=== PATIENT | female | born 1985 | race Caucasian/White ===

== ENCOUNTER 2024-06-17 15:04 | Outpatient (AMB) | payer MEDICAID, SELFPAY ==
--- NOTE | 2024-06-17 15:11 | MHC.OFFVIS ---
Vital Signs 06/17/24 15:18 Height 5 ft 2 in Weight 130 lb 1.164 oz BMI 23.8 BP 120/80 Blood Pressure Location Lt brachial Position Sitting Pulse 95 Pulse Source Pulse Oximeter Pulse Oximetry (%) 98 Oxygen Delivery Method Simple Mask Intake Visit Reasons: Lupus/CM Intake Note: Patient presents for Lupus. Allergies No Known Allergies Allergy (Mild, Verified 06/17/24 15:16) NOT APPLICABLE Medication List - Last Reconciled 06/17/24 by Carmita Henriquez MD minoxidil 5% ea topical HPI Comments Details: This is a 39-year-old female who presents for evaluation of a positive ALEXYS. She was referred by Dermatology. This was ordered in the context of alopecia. Patient stated that she has had hair loss for more than 10 years. Did that it started when she started having kids. She states that the hair grows back. She started using minoxidil about 4 years ago after having her last child. She states that it does help. She denies having any bald spots. Patient denies any unexplained fevers, unexplained weight loss, skin rashes, mouth ulcers, blood or froth in urine, joint pain, swelling or stiffness. She denies any history of DVT/PE. She had 5 pregnancies, 5 children, no abortions or miscarriages. She is unaware of any family history of an autoimmune rheumatic disease REPLACED BY [facility] Medical History Melanocytic nevi of scalp and neck Melanocytic nevi of other parts of face Female pattern alopecia Flexural atopic dermatitis Hair loss Family History Mother Thyroid cancer Social History Household Members: Family Housing: House Alcohol intake: never Patient Tobacco Use Status: Never used Tobacco Current occupational status: unemployed Female Reproductive History Menstrual Total pregnancies: 5 Full term: 5 Ab induced: 0 Ab spontaneous: 0 Review of Systems Const Denies fatigue, Denies fever(s) and Denies weight loss ENT Details: Denies oral ulcers Musc Denies arthralgias, Denies joint swelling and Denies stiffness Skin/Breast Reports alopecia and Denies rash Endo Denies fatigue Physical Exam Vital Signs: Last Vital Signs Pulse 95 06/17/24 15:18 BP 120/80 06/17/24 15:18 Pulse Ox 98 06/17/24 15:18 Oxygen Delivery Method Simple Mask 06/17/24 15:18 BMI result Body Mass Index 23.8 Const General: cooperative, healthy appearing and comfortable Nutritional Appearance: average body habitus Orientation/consciousness: patient oriented x3 Limitations: no limitations HEENT Head: Yes normocephalic and Yes atraumatic Mouth: moist mucous membranes Resp Effort & Inspection: normal respiratory effort and able to speak in complete sentences Auscultation: clear to auscultation bilaterally Cardio Rate: regular rate Rhythm: regular rhythm GI Palpation (GI): Tenderness to palpation present (GI) Skin General skin exam: no rashes or lesions noted Neuro General: patient oriented x3 Extrem Other: Minimal osteoarthritic changes of both hands with no active synovitis Normal nailfold capillaroscopy No knee pain with full flexion-extension Normal pain-free range of motion of elbows and shoulders Results Reviewed Results Reviewed: Labs 06/2023 CBC unremarkable CMP unremarkable Ferritin 14(14-283) TSH 3.40 normal ALEXYS 1-320 nucleolar Assessment & Plan Assessment & Plan (1) ALEXYS positive: Code(s): R76.8 - Other specified abnormal immunological findings in serum Category: Medical Plan: This is a 39-year-old female referred by Dermatology for evaluation of a positive ALEXYS in the context of female pattern alopecia. Upon evaluation I do not see any signs suggestive of an underlying autoimmune rheumatic disease. Patient essentially has negative exam and negative review of systems. Positive ALEXYS can be seen in about 20% of the population without underlying autoimmune rheumatic disease Discussed with patient the symptoms and signs that are suggestive of an autoimmune rheumatic disease. Advised patient to return as needed Plan I spent 25 minutes reviewing patient's chart, evaluating patient, counseling patient and documenting in the chart Coding Level of Care Code New Pt Level 3 (54277) Diagnoses ALEXYS positive R76.8
[2024-06-17 15:18] VITALS: BP 120/80; PULSE 95; O2SAT 98; BMI 23.8
== END 2024-06-17 15:55 | disposition home or self-care (01) ==
PROVIDERS: PCP Physician Assistant; Visit Provider Student in an Organized Health Care Education/Training Program
DX: R76.8 Other specified abnormal immunological findings in serum (principal)
CPT/HCPCS: 99203

== ENCOUNTER → 2024-06-17 15:04 | Outpatient (BNVA) | payer MEDICAID, SELFPAY | PROVIDERS: PCP Physician Assistant; Visit Provider Student in an Organized Health Care Education/Training Program | DX: R76.8 Other specified abnormal immunological findings in serum (principal) | CPT/HCPCS: 99202 ==